=== PATIENT | female | born 1995 | race Caucasian/White ===

== ENCOUNTER 2016-10-14 10:52 | Emergency (ER) | payer SELFPAY ==
[~2016-10-14] VITALS: Ht 170.2 cm; Wt 57.3 kg
[2016-10-14 10:56] VITALS: TEMP 97
[2016-10-14 11:36] LABS: BASO % 0.7 % (0.0-2.0); EOS # 0.1 (0.0-0.7); EOS % 2.9 % (0-4.0); GRAN # 1.8 (1.4-6.5); GRAN % 43.6 % (42.2-75.2); HEMATOCRIT 43.8 % (37.0-47.0); LYMPH # 1.8 (1.2-3.4); MEAN CELL VOLUME 86 fl (80.0-100.0); MEAN CORPUSCULAR HEMOGLOBIN 28 pg (27.0-31.0); MEAN CORPUSCULAR HGB CONC 32 g/dl (33.0-37.0); MEAN PLATELET VOLUME 11.9 fl (7.4-10.4); MONO # 0.4 (0.1-0.6); MONO % 9.8 % (1.7-9.3); PLATELET COUNT 182 K/mm3 (130-400); REDCELL DISTRIBUTION WIDTH-CV 13.3 % (11.5-14.5); WHITE BLOOD COUNT 4.2 K/mm3 (4.8-10.8)
[2016-10-14 11:47] LABS: ADJUSTED CALCIUM 8.9 mg/dL (8.4-10.2); ALANINE AMINOTRANSFERASE 19 U/L (9-52); ALBUMIN 4.6 gm/dL (3.5-5.0); ALKALINE PHOSPHATASE 74 U/L (50-136); ANION GAP 11 mmol/L (7-16); BILIRUBIN,TOTAL 0.9 mg/dL (0.0-1.0); BLOOD UREA NITROGEN 9 mg/dL (7-17); CALCIUM 9.4 mg/dL (8.4-10.2); CARBON DIOXIDE 26 mmol/L (22-30); CHLORIDE 102 mmol/L (98-107); CREATININE, serum 0.54 mg/dL (0.52-1.25); GLUCOSE 89 mg/dL (74-106); LIPASE 48 U/L (23-300); POTASSIUM 3.9 mmol/L (3.4-5.0); SODIUM 140 mmol/L (137-145); TOTAL PROTEIN 8.2 gm/dL (6.4-8.2)
[2016-10-14 12:00] LABS: B-TYPE NATRIURETIC PEPTIDE 20 pg/mL (0-125); TROPONIN-I < 0.012 ng/mL (0.000-0.034)
[2016-10-14 13:46] VITALS: BP 115/78; PULSE 85
== END 2016-10-14 13:48 | disposition home or self-care (01) ==
LOC: COL.ER 10:52
PROVIDERS: Emergency Medicine
DX: R00.0 Tachycardia, unspecified (principal); R00.2 Palpitations; F17.210 Nicotine dependence, cigarettes, uncomplicated
CPT/HCPCS: J7030

== ENCOUNTER 2016-10-16 12:21 | Emergency (ER) | payer SELFPAY ==
[~2016-10-16] VITALS: Ht 170.2 cm; Wt 57.3 kg
[2016-10-16 12:29] VITALS: TEMP 98.3
[2016-10-16] MEDS ORDERED: MEDROL 4MG DOSPA4 MG PO (13:45)
[2016-10-16 14:03] VITALS: BP 110/80; PULSE 95
[2016-10-16 14:04] LABS: C-REACTIVE PROTEIN < 0.5 mg/dL (0.0-0.9)
[2016-10-16 14:46] LABS: TROPONIN-I < 0.012 ng/mL (0.000-0.034)
== END 2016-10-16 14:03 | disposition home or self-care (01) ==
LOC: COL.ER 12:21
PROVIDERS: Emergency Medicine
DX: R07.9 Chest pain, unspecified (principal); R00.2 Palpitations; F17.210 Nicotine dependence, cigarettes, uncomplicated; R00.0 Tachycardia, unspecified; R05 Cough

== ENCOUNTER 2016-11-01 22:57 | Emergency (ER) | payer SELFPAY ==
[~2016-11-01] VITALS: Ht 167.6 cm; Wt 60.0 kg
[~2016-11-01 22:57] MED LIST: MEDROL 4MG DOSPA4 MG PO
[2016-11-01 22:58] VITALS: BP 102/77; TEMP 98
[2016-11-01] MEDS ORDERED: PHENERGAN 25 TA25 MG PO (23:55)
[2016-11-02 01:08] VITALS: PULSE 92
== END 2016-11-02 02:19 | disposition home or self-care (01) ==
LOC: COL.ER 22:57
DX: K04.7 Periapical abscess without sinus (principal)
CPT/HCPCS: J1170; J2550; J7030

== ENCOUNTER 2016-12-30 14:10 | Emergency (ER) | payer SELFPAY ==
[~2016-12-30] VITALS: Ht 170.2 cm; Wt 57.3 kg
[~2016-12-30 14:10] MED LIST changes: +PHENERGAN 25 TA25 MG PO
[2016-12-30 14:11] VITALS: BP 129/77; TEMP 98.5
[2016-12-30] MEDS ORDERED: PEN-VEE K500 MG PO (15:38)
[2016-12-30] MEDS ORDERED: NORCO 325 MG-51 TAB PO (15:38)
[2016-12-30] MEDS ORDERED: ZOFRAN ODT4 MG PO (15:38)
[2016-12-30 15:43] VITALS: PULSE 92
== END 2016-12-30 15:44 | disposition home or self-care (01) ==
LOC: COL.ER 14:10
DX: K08.89 Other specified disorders of teeth and supporting structures (principal); K03.81 Cracked tooth; F17.210 Nicotine dependence, cigarettes, uncomplicated; R50.9 Fever, unspecified

== ENCOUNTER 2017-01-29 14:53 | Emergency (ER) | payer SELFPAY ==
[~2017-01-29] VITALS: Ht 167.6 cm; Wt 60.5 kg
[~2017-01-29 14:53] MED LIST changes: +NORCO 325 MG-51 TAB PO; +PEN-VEE K500 MG PO; +ZOFRAN ODT4 MG PO
[2017-01-29 15:04] VITALS: TEMP 98.3
[2017-01-29] MEDS ORDERED: DIFLUCAN150 MG PO (15:32)
[2017-01-29] MEDS ORDERED: CLEOCIN HC150 MG/CAP PO (15:32)
[2017-01-29 15:49] LABS: BASO # 0.1 (0.0-0.2); BASO % 1.2 % (0.0-2.0); EOS # 0.1 (0.0-0.7); EOS % 2.7 % (0-4.0); GRAN # 1.7 (1.4-6.5); GRAN % 41.1 % (42.2-75.2); HEMATOCRIT 37.2 % (37.0-47.0); HEMOGLOBIN 12.3 g/dl (12.5-16.0); LYMPH # 1.9 (1.2-3.4); LYMPH % 45.9 % (20.0-51.0); MEAN CELL VOLUME 84 fl (80.0-100.0); MEAN CORPUSCULAR HEMOGLOBIN 28 pg (27.0-31.0); MEAN CORPUSCULAR HGB CONC 33 g/dl (33.0-37.0); MEAN PLATELET VOLUME 12.4 fl (7.4-10.4); MONO # 0.4 (0.1-0.6); MONO % 8.9 % (1.7-9.3); PLATELET COUNT 150 K/mm3 (130-400); RED BLOOD COUNT 4.44 M/mm3 (4.10-5.30); REDCELL DISTRIBUTION WIDTH-CV 13.7 % (11.5-14.5)
[2017-01-29 15:53] LABS: PH 8 (5-8); URINE APPEARANCE Cloudy; URINE BACTERIA Rare /hpf; URINE BILIRUBIN Negative (NEGATIVE); URINE BLOOD Negative (NEGATIVE); URINE COLOR Yellow; URINE GLUCOSE Negative (NEGATIVE); URINE KETONE Negative (NEGATIVE); URINE UROBILINOGEN Negative (NEGATIVE); URINE WBC None Seen /hpf
[2017-01-29 16:01] LABS: ADJUSTED CALCIUM 8.8 mg/dL (8.4-10.2); ALANINE AMINOTRANSFERASE 17 U/L (9-52); ALBUMIN 4.7 gm/dL (3.5-5.0); ALKALINE PHOSPHATASE 51 U/L (50-136); ANION GAP 12 mmol/L (7-16); BLOOD UREA NITROGEN 6 mg/dL (7-17); CALCIUM 9.4 mg/dL (8.4-10.2); CARBON DIOXIDE 27 mmol/L (22-30); CHLORIDE 103 mmol/L (98-107); CREATININE, serum 0.62 mg/dL (0.52-1.25); GLUCOSE 85 mg/dL (74-106); LIPASE 78 U/L (23-300); POTASSIUM 3.7 mmol/L (3.4-5.0); SODIUM 141 mmol/L (137-145); TOTAL PROTEIN 7.9 gm/dL (6.4-8.2)
[2017-01-29 16:05] LABS: C-REACTIVE PROTEIN < 0.5 mg/dL (0.0-0.9)
[2017-01-29] MEDS ORDERED: AMOXICILLIN 50500 MG PO (16:15)
[2017-01-29] MEDS ORDERED: ZOFRAN 4MG T4 MG/TAB PO (16:15)
[2017-01-29 16:25] VITALS: BP 107/64; PULSE 73
== END 2017-01-29 16:28 | disposition home or self-care (01) ==
LOC: COL.ER 14:53
PROVIDERS: Emergency Medicine
DX: R10.84 Generalized abdominal pain (principal); R11.0 Nausea; T36.8X5A Adverse effect of other systemic antibiotics, initial encounter
CPT/HCPCS: J1885; J2405; J7030

== ENCOUNTER 2017-03-03 22:10 | Emergency (ER) | payer SELFPAY ==
[~2017-03-03] VITALS: Ht 170.2 cm; Wt 60.0 kg
[~2017-03-03 22:10] MED LIST changes: +AMOXICILLIN 50500 MG PO; +CLEOCIN HC150 MG/CAP PO; +DIFLUCAN150 MG PO; +ZOFRAN 4MG T4 MG/TAB PO
[2017-03-03 22:16] VITALS: BP 115/70
[2017-03-03 22:55] LABS: PH 5 (5-8); URINE APPEARANCE Clear; URINE BACTERIA Rare /hpf; URINE BILIRUBIN Negative (NEGATIVE); URINE BLOOD Negative (NEGATIVE); URINE COLOR Yellow; URINE GLUCOSE Negative (NEGATIVE); URINE KETONE Negative (NEGATIVE); URINE RBC >50 /hpf; URINE UROBILINOGEN Negative (NEGATIVE)
[2017-03-04 00:55] LABS: CHLAMYDIA/TRACH by PCR Female NOT DETECTED; NEISSERIA GON by PCR Female NOT DETECTED
[2017-03-04] MEDS ORDERED: FLAGYL500 MG PO (01:02)
[2017-03-04 01:14] VITALS: PULSE 82
[2017-03-04 01:15] VITALS: TEMP 97.4
== END 2017-03-04 01:15 | disposition home or self-care (01) ==
LOC: COL.ER 22:10
PROVIDERS: Nurse Practitioner
DX: N76.0 Acute vaginitis (principal); F17.210 Nicotine dependence, cigarettes, uncomplicated; Z98.1 Arthrodesis status

== ENCOUNTER 2017-03-31 16:37 | Emergency (ER) | payer OTHER ==
[~2017-03-31] VITALS: Ht 170.2 cm; Wt 63.6 kg
[~2017-03-31 16:37] MED LIST changes: +FLAGYL500 MG PO
[2017-03-31 16:47] VITALS: BP 121/72; TEMP 98.7
[2017-03-31] MEDS ORDERED: ZITHROMAX Z PA250 MG PO (16:49)
[2017-03-31] MEDS ORDERED: TESSALON P100 MG/CAP PO (16:49)
[2017-03-31 18:47] VITALS: PULSE 87
== END 2017-03-31 18:45 | disposition home or self-care (01) ==
LOC: COL.ER 16:37
DX: R05 Cough (principal); R09.1 Pleurisy; F17.210 Nicotine dependence, cigarettes, uncomplicated

== ENCOUNTER → 2017-04-08 | Outpatient (CLI) | payer OTHER ==
[~2017-04-08] MED LIST changes: +FLEXERIL 1010 MG/TAB PO; +PREDNISONE20 MG PO; +TESSALON P100 MG/CAP PO; +ZITHROMAX Z PA250 MG PO
== END ==
LOC: COL.RAD 14:24
DX: T83.32XA Displacement of intrauterine contraceptive device, initial encounter (principal); N83.201 Unspecified ovarian cyst, right side

== ENCOUNTER 2017-04-09 17:55 | Emergency (ER) | payer OTHER ==
[~2017-04-09] VITALS: Ht 170.2 cm; Wt 59.8 kg
[~2017-04-09 17:55] MED LIST changes: -FLEXERIL 1010 MG/TAB PO; -PREDNISONE20 MG PO
[2017-04-09 18:01] VITALS: BP 107/68; TEMP 99
[2017-04-09] MEDS ORDERED: NORCO 325 MG-51 TAB PO (19:07)
[2017-04-09 19:35] VITALS: PULSE 89
== END 2017-04-09 19:35 | disposition home or self-care (01) ==
LOC: COL.ER 17:55
DX: T83.32XA Displacement of intrauterine contraceptive device, initial encounter (principal); A64 Unspecified sexually transmitted disease
CPT/HCPCS: J0696

== ENCOUNTER 2017-04-11 22:04 | Emergency (ER) | payer OTHER ==
[~2017-04-11] VITALS: Ht 170.2 cm; Wt 59.1 kg
[2017-04-11 22:06] VITALS: BP 117/72; TEMP 98.6
[2017-04-11 22:48] LABS: PH 7 (5-8); SQUAMOUS EPITHELIAL 0-2 /hpf; URINE APPEARANCE Clear; URINE BACTERIA None Seen /hpf; URINE BILIRUBIN Negative (NEGATIVE); URINE BLOOD Negative (NEGATIVE); URINE COLOR Yellow; URINE GLUCOSE Negative (NEGATIVE); URINE KETONE Negative (NEGATIVE); URINE RBC 0-2 /hpf; URINE UROBILINOGEN Negative (NEGATIVE); URINE WBC 0-2 /hpf
[2017-04-11] MEDS ORDERED: PREDNISONE20 MG PO (23:05)
[2017-04-11 23:43] VITALS: PULSE 85
== END 2017-04-11 23:43 | disposition home or self-care (01) ==
LOC: COL.ER 22:04
PROVIDERS: Nurse Practitioner
DX: M54.16 Radiculopathy, lumbar region (principal); F17.210 Nicotine dependence, cigarettes, uncomplicated; Z87.39 Personal history of other diseases of the musculoskeletal system and connective tissue; Z32.02 Encounter for pregnancy test, result negative
CPT/HCPCS: J1170; J1885; J2550

== ENCOUNTER 2017-05-08 13:08 | Emergency (ER) | payer OTHER ==
[~2017-05-08] VITALS: Ht 170.2 cm; Wt 59.1 kg
[~2017-05-08 13:08] MED LIST changes: +PREDNISONE20 MG PO
[2017-05-08 13:16] VITALS: TEMP 98.6
[2017-05-08] MEDS ORDERED: FLEXERIL 1010 MG/TAB PO (13:24)
[2017-05-08] MEDS ORDERED: ZOFRAN ODT4 MG PO (13:25)
[2017-05-08 14:03] LABS: BASO # 0.1 (0.0-0.2); BASO % 1.1 % (0.0-2.0); EOS # 0.1 (0.0-0.7); HEMATOCRIT 37.8 % (37.0-47.0); HEMOGLOBIN 12.5 g/dl (12.5-16.0); LYMPH % 44.4 % (20.0-51.0); MEAN CELL VOLUME 85 fl (80.0-100.0); MEAN CORPUSCULAR HEMOGLOBIN 28 pg (27.0-31.0); MEAN CORPUSCULAR HGB CONC 33 g/dl (33.0-37.0); MEAN PLATELET VOLUME 12.4 fl (7.4-10.4); MONO # 0.3 (0.1-0.6); MONO % 7.3 % (1.7-9.3); PLATELET COUNT 139 K/mm3 (130-400); RED BLOOD COUNT 4.46 M/mm3 (4.10-5.30); REDCELL DISTRIBUTION WIDTH-CV 12.4 % (11.5-14.5); WHITE BLOOD COUNT 4.5 K/mm3 (4.8-10.8)
[2017-05-08 14:12] LABS: PH 6 (5-8); SQUAMOUS EPITHELIAL 0-2 /hpf; URINE APPEARANCE Clear; URINE BACTERIA None Seen /hpf; URINE BILIRUBIN Negative (NEGATIVE); URINE BLOOD Negative (NEGATIVE); URINE COLOR Straw; URINE GLUCOSE Negative (NEGATIVE); URINE KETONE Negative (NEGATIVE); URINE RBC 0-2 /hpf; URINE UROBILINOGEN Negative (NEGATIVE); URINE WBC 0-2 /hpf
[2017-05-08 14:24] LABS: ADJUSTED CALCIUM 9.2 mg/dL (8.4-10.2); ALANINE AMINOTRANSFERASE 10 U/L (9-52); ALBUMIN 4.7 gm/dL (3.5-5.0); ALKALINE PHOSPHATASE 54 U/L (50-136); ANION GAP 8 mmol/L (7-16); BILIRUBIN,TOTAL 0.6 mg/dL (0.0-1.0); BLOOD UREA NITROGEN 5 mg/dL (7-17); CALCIUM 9.8 mg/dL (8.4-10.2); CARBON DIOXIDE 26 mmol/L (22-30); CHLORIDE 105 mmol/L (98-107); CREATININE, serum 0.58 mg/dL (0.52-1.25); GLUCOSE 82 mg/dL (74-106); POTASSIUM 3.9 mmol/L (3.4-5.0); SODIUM 139 mmol/L (137-145); TOTAL PROTEIN 7.7 gm/dL (6.4-8.2)
[2017-05-08 14:41] LABS: C-REACTIVE PROTEIN < 0.5 mg/dL (0.0-0.9)
[2017-05-08 15:19] VITALS: BP 111/70; PULSE 90
== END 2017-05-08 15:26 | disposition home or self-care (01) ==
LOC: COL.ER 13:08
PROVIDERS: Physician Assistant
DX: R10.32 Left lower quadrant pain (principal); D64.9 Anemia, unspecified; G89.29 Other chronic pain; M54.9 Dorsalgia, unspecified; F17.210 Nicotine dependence, cigarettes, uncomplicated; Z98.818 Other dental procedure status; Z87.42 Personal history of other diseases of the female genital tract; Z98.890 Other specified postprocedural states
CPT/HCPCS: J1885

== ENCOUNTER 2017-05-14 17:38 | Emergency (ER) | payer OTHER ==
[~2017-05-14] VITALS: Ht 170.2 cm; Wt 59.1 kg
[~2017-05-14 17:38] MED LIST changes: +FLEXERIL 1010 MG/TAB PO
[2017-05-14 17:40] VITALS: TEMP 98
[2017-05-14 18:02] LABS: PH 8 (5-8); URINE APPEARANCE Clear; URINE BACTERIA Rare /hpf; URINE BILIRUBIN Negative (NEGATIVE); URINE BLOOD Negative (NEGATIVE); URINE COLOR Yellow; URINE GLUCOSE Negative (NEGATIVE); URINE KETONE Negative (NEGATIVE); URINE RBC 0-2 /hpf; URINE UROBILINOGEN Negative (NEGATIVE)
[2017-05-14 18:54] VITALS: BP 110/89; PULSE 97
== END 2017-05-14 18:49 | disposition home or self-care (01) ==
LOC: COL.ER 17:38
PROVIDERS: Physician Assistant
DX: G89.29 Other chronic pain (principal); M54.9 Dorsalgia, unspecified
CPT/HCPCS: J1885

== ENCOUNTER 2017-07-28 10:55 | Emergency (ER) | payer OTHER ==
[~2017-07-28] VITALS: Ht 170.2 cm; Wt 60.9 kg
[2017-07-28 10:57] VITALS: BP 130/74; TEMP 98.5
[2017-07-28] MEDS ORDERED: ZOLOFT 50MG50 MG PO (11:00)
[2017-07-28] MEDS ORDERED: BACTRIM DS 8001 TAB PO (11:48)
[2017-07-28 12:01] VITALS: PULSE 83
== END 2017-07-28 12:03 | disposition home or self-care (01) ==
LOC: COL.ER 10:55
DX: S00.85XA Superficial foreign body of other part of head, initial encounter (principal); F17.210 Nicotine dependence, cigarettes, uncomplicated; Z90.89 Acquired absence of other organs; X58.XXXA Exposure to other specified factors, initial encounter

== ENCOUNTER 2017-08-06 15:11 | Emergency (ER) | payer OTHER ==
[~2017-08-06] VITALS: Ht 170.2 cm; Wt 59.1 kg
[~2017-08-06 15:11] MED LIST changes: +BACTRIM DS 8001 TAB PO; +ZOLOFT 50MG50 MG PO
[2017-08-06 15:21] VITALS: BP 123/73; TEMP 98.5
[2017-08-06 16:12] LABS: COLLECTION METHOD CLEAN CATCH
[2017-08-06 16:24] LABS: MUCOUS Present /lpf; PH 6 (5-8); URINE APPEARANCE Hazy; URINE BACTERIA None Seen /hpf; URINE BILIRUBIN Negative (NEGATIVE); URINE BLOOD Negative (NEGATIVE); URINE COLOR Yellow; URINE GLUCOSE Negative (NEGATIVE); URINE KETONE Negative (NEGATIVE); URINE LEUKOCYTE ESTERASE 1+ (NEGATIVE); URINE PROTEIN(semi-quant) Negative (NEGATIVE); URINE UROBILINOGEN >=4.0 mg/dL (NEGATIVE); URINE WBC 0-2 /hpf
[2017-08-06 17:13] VITALS: PULSE 82
== END 2017-08-06 17:15 | disposition home or self-care (01) ==
LOC: COL.ER 15:11
PROVIDERS: Physician Assistant
DX: R11.2 Nausea with vomiting, unspecified (principal); T43.225A Adverse effect of selective serotonin reuptake inhibitors, initial encounter; F17.210 Nicotine dependence, cigarettes, uncomplicated; Z90.89 Acquired absence of other organs

== ENCOUNTER 2017-09-04 02:53 | Emergency (ER) | payer OTHER ==
[~2017-09-04] VITALS: Ht 170.2 cm; Wt 59.1 kg
[2017-09-04 02:58] VITALS: BP 116/72
[2017-09-04] MEDS ORDERED: CEPHALEXIN500 M1 PO (03:01)
[2017-09-04] MEDS ORDERED: MOBIC 7.5MG7.5 MG PO (03:11)
[2017-09-04] MEDS ORDERED: NORCO 325 MG-51 TAB PO (03:30)
[2017-09-04 04:30] VITALS: PULSE 94
== END 2017-09-04 04:30 | disposition home or self-care (01) ==
LOC: COL.ER 02:53
DX: R68.84 Jaw pain (principal); K02.9 Dental caries, unspecified
CPT/HCPCS: J0561; J1885

== ENCOUNTER 2017-11-03 12:41 | Emergency (ER) | payer OTHER ==
[~2017-11-03] VITALS: Ht 170.2 cm; Wt 59.1 kg
[~2017-11-03 12:41] MED LIST changes: +CEPHALEXIN500 M1 PO; +MOBIC 7.5MG7.5 MG PO
[2017-11-03 12:42] VITALS: BP 122/73; TEMP 97.7
[2017-11-03 12:57] LABS: COLLECTION METHOD CLEAN CATCH
[2017-11-03 13:16] LABS: MUCOUS Present /lpf; PH 8 (5-8); SQUAMOUS EPITHELIAL 0-2 /hpf; URINE APPEARANCE Turbid; URINE BACTERIA None Seen /hpf; URINE BILIRUBIN Negative (NEGATIVE); URINE BLOOD Negative (NEGATIVE); URINE COLOR Yellow; URINE GLUCOSE Negative (NEGATIVE); URINE KETONE Negative (NEGATIVE); URINE LEUKOCYTE ESTERASE Negative (NEGATIVE); URINE NITRATE Negative (NEGATIVE); URINE PROTEIN(semi-quant) Negative (NEGATIVE); URINE UROBILINOGEN Negative (NEGATIVE)
[2017-11-03 14:09] LABS: BASO % 0.7 % (0.0-2.0); EOS % 0.7 % (0-4.0); GRAN # 3.3 (1.4-6.5); GRAN % 54.9 % (42.2-75.2); HEMATOCRIT 38.3 % (37.0-47.0); HEMOGLOBIN 12.6 g/dl (12.5-16.0); LYMPH % 33.2 % (20.0-51.0); MEAN CELL VOLUME 87 fl (80.0-100.0); MEAN CORPUSCULAR HEMOGLOBIN 29 pg (27.0-31.0); MEAN CORPUSCULAR HGB CONC 33 g/dl (33.0-37.0); MEAN PLATELET VOLUME 12.5 fl (7.4-10.4); MONO # 0.6 (0.1-0.6); MONO % 10.3 % (1.7-9.3); PLATELET COUNT 161 K/mm3 (130-400); RED BLOOD COUNT 4.38 M/mm3 (4.10-5.30); REDCELL DISTRIBUTION WIDTH-CV 12.8 % (11.5-14.5)
[2017-11-03 14:23] LABS: ALANINE AMINOTRANSFERASE 21 U/L (9-52); ALBUMIN 4.7 gm/dL (3.5-5.0); ALKALINE PHOSPHATASE 49 U/L (50-136); ANION GAP 13 mmol/L (7-16); AST,SGOT 17 U/L (15-37); BILIRUBIN,TOTAL 0.4 mg/dL (0.0-1.0); BLOOD UREA NITROGEN 7 mg/dL (7-17); CALCIUM 9.1 mg/dL (8.4-10.2); CARBON DIOXIDE 27 mmol/L (22-30); CHLORIDE 105 mmol/L (98-107); CREATININE, serum 0.52 mg/dL (0.52-1.25); GLUCOSE 96 mg/dL (74-106); LIPASE 63 U/L (23-300); POTASSIUM 3.6 mmol/L (3.4-5.0); SODIUM 145 mmol/L (137-145); TOTAL PROTEIN 7.8 gm/dL (6.4-8.2)
[2017-11-03 14:24] LABS: C-REACTIVE PROTEIN < 0.5 mg/dL (0.0-0.9)
[2017-11-03] MEDS ORDERED: ULTRAM 50MG TAB50 MG PO (15:00)
[2017-11-03 15:09] VITALS: PULSE 78
[2017-11-03] MEDS ORDERED: ZOFRAN ODT4 MG PO (15:11)
== END 2017-11-03 15:11 | disposition home or self-care (01) ==
LOC: COL.ER 12:41
PROVIDERS: Nurse Practitioner
DX: M54.5 Low back pain (principal); F17.210 Nicotine dependence, cigarettes, uncomplicated; Z90.89 Acquired absence of other organs; Z90.710 Acquired absence of both cervix and uterus; Z98.890 Other specified postprocedural states
CPT/HCPCS: J1885; J2270; J2405; J7030